=== PATIENT | female | born 1955 | race African-American/Black ===

== ENCOUNTER 2018-03-24 16:32 | Emergency (ER) | payer OTHER ==
[~2018-03-24] VITALS: Ht 157.5 cm; Wt 70.5 kg
[~2018-03-24 16:32] MED LIST: AMLO-512 PO; CYCL10 PO; GABA-529 PO; HYDR-3965 PO; HYDR25TA PO; LISI-662 PO
[2018-03-24] MEDS ORDERED: DiphenhydrAMINE HCL 25 MG CAPSULE PO ONE (19:00)
[2018-03-24] MEDS ORDERED: ACETAMINOPHEN 500 MG TABLET PO ONE (19:00)
[2018-03-24] MEDS ORDERED: DiphenhydrAMINE/ZINC ACET 30 GM CREAM TP ONE (19:00)
[2018-03-24 20:47] VITALS: BP 119/78
== END 2018-03-24 20:51 | disposition home or self-care (01) ==
LOC: EMS 16:34
DX: M70.21 Olecranon bursitis, right elbow (principal); I10 Essential (primary) hypertension; Z79.899 Other long term (current) drug therapy; Y93.89 Activity, other specified
CPT/HCPCS: 99284

== ENCOUNTER 2019-08-27 18:23 | Emergency (ER) | payer SELFPAY ==
[~2019-08-27] VITALS: Ht 157.5 cm; Wt 69.5 kg
[~2019-08-27 18:23] MED LIST changes: -AMLO-512 PO; +AMLO10TA7 PO
[2019-08-27] MEDS ORDERED: ACETAMINOPHEN 325 MG TABLET PO ONE (21:15)
[2019-08-27] MEDS ORDERED: IBUPROFEN 400 MG TABLET PO ONE (21:15)
[2019-08-27] MEDS ORDERED: TiZANidine HCL 4 MG TABLET PO ONE (21:30)
[2019-08-27] MEDS ORDERED: LIDOCAINE 5% TRANSDERMAL PATCH TD ONE (21:30)
[2019-08-27 23:07] VITALS: BP 138/69
== END 2019-08-27 23:08 | disposition home or self-care (01) ==
LOC: EMS 18:25
DX: S46.912A Strain of unspecified muscle, fascia and tendon at shoulder and upper arm level, left arm, initial encounter (principal); I10 Essential (primary) hypertension; Z79.899 Other long term (current) drug therapy; V49.40XA Driver injured in collision with unspecified motor vehicles in traffic accident, initial encounter; Y93.89 Activity, other specified; Y92.89 Other specified places as the place of occurrence of the external cause; Y99.8 Other external cause status

== ENCOUNTER 2024-07-11 12:32 | Emergency (ER) | payer OTHER ==
[~2024-07-11] VITALS: Ht 154.9 cm; Wt 64.1 kg
[~2024-07-11 12:32] MED LIST changes: +AMLO-258 PO; -AMLO10TA7 PO; +CYCL-448 PO; -CYCL10 PO; -GABA-529 PO; -HYDR-3965 PO; +HYDR-4062 PO; -HYDR25TA PO; +HYDR25TA2 PO; -LISI-662 PO; +LISI-894 PO
[2024-07-11 12:36] VITALS: TEMP 98.1
[2024-07-11] MEDS ORDERED: HYDR-4069 PO (12:39)
[2024-07-11] MEDS ORDERED: NETA2.5D3 OU (12:42)
[2024-07-11] MEDS ORDERED: LISI-658 PO (12:42)
[2024-07-11] MEDS ORDERED: FOLI1TAB85 PO (12:42)
[2024-07-11] MEDS: ACETAMINOPHEN 325 MG TABLET PO ONE (15:15)
[2024-07-11] MEDS: LIDOCAINE 5% TRANSDERMAL PATCH TD ONE (15:15)
[2024-07-11 16:06] VITALS: BP 137/65; PULSE 72; RESP 16; O2SAT 98
== END 2024-07-11 16:16 | disposition home or self-care (01) ==
LOC: EMS 12:32
DX: S90.31XA Contusion of right foot, initial encounter (principal); I10 Essential (primary) hypertension; Z88.0 Allergy status to penicillin; Z79.899 Other long term (current) drug therapy; W22.8XXA Striking against or struck by other objects, initial encounter; Y93.89 Activity, other specified; Y92.89 Other specified places as the place of occurrence of the external cause; Y99.8 Other external cause status
CPT/HCPCS: 99283